=== PATIENT | female | born 1985 ===

== ENCOUNTER 2020-04-09 16:26 | Outpatient (REF) | payer MEDICAID, SELFPAY ==
--- NOTE | ~2020-04-09 | US_ITS ---
EXAMINATION: US SOFT TISSUE OF THE NECK CLINICAL INFORMATION: Nonpulsatile soft, mobile mass base of neck. COMPARISON: None TECHNIQUE: Linear transducer little-scale and color Doppler examination of the right base of neck. FINDINGS: In the area of the lump where the patient complains, there is a soft tissue heterogenous left thyroid nodule in the lower pole with increased vascularity. It moves with swallowing and causes pain during swallowing. It measures 2.2 x 1.7 x 1.9 cm. US/US soft tiss head and/or neck IMPRESSION: Heterogeneous vascular lower pole thyroid nodule. It moves with swallowing and causes pain.
== END 2020-04-09 16:27 | disposition home or self-care (01) ==
LOC: HO.US 16:26
PROVIDERS: Visit Provider Family Medicine
DX: R22.1 Localized swelling, mass and lump, neck (principal)
CPT/HCPCS: 76536

== ENCOUNTER → 2020-04-11 13:03 | Outpatient (BNVA) | payer MEDICAID, SELFPAY | PROVIDERS: PCP Family Medicine; Visit Provider Internal Medicine | DX: E04.2 Nontoxic multinodular goiter (principal) | CPT/HCPCS: 99202 ==

== ENCOUNTER 2020-05-14 11:28 | Outpatient (REF) | payer MEDICAID, SELFPAY ==
--- NOTE | ~2020-05-14 | US_ITS ---
EXAMINATION: PELVIC ULTRASOUND CLINICAL INFORMATION: Abnormal vaginal bleeding COMPARISON: None TECHNIQUE: Transabdominal and transvaginal pelvic ultrasound was performed. Transvaginal exam was performed for better visualization of the uterus and ovaries. FINDINGS: The uterus is anteverted and measures 8.5 x 6 x 6 cm in dimension. No focal uterine lesion is seen. Endometrial thickness is normal. There is a small amount of fluid seen in the endometrial canal. Anterior single thickness endometrium measures 4 mm and posterior single thickness endometrium measures 4 mm, double thickness endometrium measures 8 mm. The posterior wall of the endometrium appears slightly echogenic. This appears avascular and is of uncertain clinical significance. The cervix is normal appearing. The ovaries are normal-appearing. The right ovary measures 4 x 2.4 x 3 cm in the left ovary measures 3 x 2 x 2.7 cm. There is no fluid in the pelvis. US/US pelvic complete IMPRESSION: Normal thickness endometrium. There is a small amount of fluid in the endometrial canal. The posterior wall of the endometrium appears slightly echogenic compared to the anterior wall of uncertain clinical significance. Normal-appearing ovaries.
--- NOTE | ~2020-05-14 | US_ITS ---
EXAMINATION: PELVIC ULTRASOUND CLINICAL INFORMATION: Abnormal vaginal bleeding COMPARISON: None TECHNIQUE: Transabdominal and transvaginal pelvic ultrasound was performed. Transvaginal exam was performed for better visualization of the uterus and ovaries. FINDINGS: The uterus is anteverted and measures 8.5 x 6 x 6 cm in dimension. No focal uterine lesion is seen. Endometrial thickness is normal. There is a small amount of fluid seen in the endometrial canal. Anterior single thickness endometrium measures 4 mm and posterior single thickness endometrium measures 4 mm, double thickness endometrium measures 8 mm. The posterior wall of the endometrium appears slightly echogenic. This appears avascular and is of uncertain clinical significance. The cervix is normal appearing. The ovaries are normal-appearing. The right ovary measures 4 x 2.4 x 3 cm in the left ovary measures 3 x 2 x 2.7 cm. There is no fluid in the pelvis. US/US transvaginal IMPRESSION: Normal thickness endometrium. There is a small amount of fluid in the endometrial canal. The posterior wall of the endometrium appears slightly echogenic compared to the anterior wall of uncertain clinical significance. Normal-appearing ovaries.
== END 2020-05-14 11:29 | disposition home or self-care (01) ==
LOC: HO.US 11:28
PROVIDERS: Visit Provider Advanced Practice Midwife
DX: N93.9 Abnormal uterine and vaginal bleeding, unspecified (principal)
CPT/HCPCS: 76830; 76856

== ENCOUNTER 2020-05-16 10:03 | Outpatient (REF) | payer MEDICAID, SELFPAY ==
--- NOTE | 2020-05-16 10:34 | P.BOP_ITS ---
Brief Operative Note Date of Service: 05/16/20 Surgeon: Tayler Davis, DO This is doctor Tayler Davis. This is an ultrasound-guided fine-needle aspiration report. Date of Examination: 05/16/2020 Indication: Multinodular Thyroid Porcedure: Procedure was explained to the patient. Alternatives, the risk and benefits were discussed. Written consent was obtained. A time-out was also obtained. After sterile preparation, fine-needle aspiration of a left mid pole 2.2 cm thyroid nodule was performed using direct ultrasound guidance to confirm accurate needle placement. Five aspirations were made using 27 gauge needles. Samples were submitted for cytology. 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 The patient tolerated the procedure well. Aftercare instructions were provided. Impression: Uncomplicated fine needle aspiration biopsy of a left mid pole 2.2 cm thyroid nodule under ultrasound guidance. Estimated blood loss (mL): 0
[2020-05-16] MEDS: Lidocaine HCl 1 % MPF 5 ML VIAL SUBCUT (11:58)
== END 2020-05-16 10:04 | disposition home or self-care (01) ==
LOC: HO.US 10:03
PROVIDERS: Visit Provider Internal Medicine
DX: E04.2 Nontoxic multinodular goiter (principal)
CPT/HCPCS: 10005; 88172; 88173; 88177

== ENCOUNTER → 2020-05-31 08:57 | Outpatient (BNVA) | payer MEDICAID, SELFPAY | PROVIDERS: PCP Family Medicine; Visit Provider Internal Medicine ==

== ENCOUNTER 2020-06-12 10:33 | Outpatient (REF) | payer MEDICAID, SELFPAY ==
[2020-06-12 12:48] LABS: MANUAL DIFF FLAG NO
[2020-06-12 12:53] LABS: Basophils Percent Auto 0.9 % (0-2); Eosinophils Absolute Auto 0.1 X10*3/uL (0.0-0.4); Hematocrit 36.2 % (37-47); Hemoglobin 12.1 g/dl (12.0-16.0); Imm Gran Abs Auto 0.01 X10*3/uL (0.00-0.03); Imm Gran Pct Auto 0.2 % (0.0-0.4); Lymphocytes Absolute Auto 1.3 X10*3/uL (1.2-4.9); Lymphocytes Percent Auto 29.6 % (20-40); Mean Corpuscular HGB Conc 33.4 g/dl (31.0-35.0); Mean Corpuscular Volume 92.8 fL (80-98); Mean Platelet Volume 12.4 fL (9.4-12.3); Monocytes Absolute Auto 0.3 X10*3/uL (0.1-1.2); Monocytes Percent Auto 7.1 % (2-11); Neutrophils Absolute Auto 2.7 X10*3/uL (2.0-8.3); Neutrophils Percent Auto 60.2 % (45-73); Platelet Count 167 X10*3/uL (160-400); Red Cell Distribution Width 12.1 % (11.0-16.0); White Blood Count 4.5 X10*3/uL (4.8-10.8)
[2020-06-13 09:58] LABS: BV Int Neg Control Negative (Negative); BV Int Pos Control Positive (Positive)
[2020-06-13 10:41] LABS: CT PCR NOT DETECTED (Not Detect.); NG PCR NOT DETECTED (Not Detect.)
[2020-06-14 20:52] LABS: HPV mRNA E6/E7 rflx Not Detected (Not Detected)
== END 2020-06-12 10:34 | disposition home or self-care (01) ==
LOC: HO.LAB 10:33
PROVIDERS: PCP Family Medicine; Visit Provider Obstetrics & Gynecology
DX: Z12.4 Encounter for screening for malignant neoplasm of cervix (principal); Z11.51 Encounter for screening for human papillomavirus (HPV); Z11.3 Encounter for screening for infections with a predominantly sexual mode of transmission; N93.9 Abnormal uterine and vaginal bleeding, unspecified
CPT/HCPCS: 36415; 85025; 87480; 87491; 87510; 87591; 87624; 87660; 88142; 99202

== ENCOUNTER → 2020-07-03 11:55 | Outpatient (BNVA) | payer MEDICAID, SELFPAY | PROVIDERS: PCP Family Medicine; Visit Provider Obstetrics & Gynecology ==

== ENCOUNTER → 2020-08-06 10:18 | Outpatient (BNVA) | payer MEDICAID, SELFPAY | PROVIDERS: PCP Family Medicine; Visit Provider Obstetrics & Gynecology ==

== ENCOUNTER 2020-09-27 12:50 | Outpatient (REF) | payer MEDICAID, SELFPAY ==
--- NOTE | ~2020-09-27 | XR_ITS ---
EXAMINATION: XR KNEE, LEFT CLINICAL INFORMATION: Pain in left knee COMPARISON: None TECHNIQUE: Four views of the left knee. FINDINGS: Bones and soft tissues are normal. No fracture or joint effusion. Alignment is anatomic. Joint spaces are well maintained. No abnormal soft tissue calcification. XR/XR knee LT 4V IMPRESSION: Normal left knee.
== END 2020-09-27 12:51 | disposition home or self-care (01) ==
LOC: HO.XRAY 12:50
PROVIDERS: PCP Family Medicine; Referring Provider Family Medicine; Visit Provider Internal Medicine
DX: M25.562 Pain in left knee (principal)
CPT/HCPCS: 73564

== ENCOUNTER 2021-01-10 10:56 | Outpatient (REF) | payer MEDICAID, SELFPAY ==
[2021-01-11 01:19] LABS: CT PCR NOT DETECTED (Not Detect.); NG PCR NOT DETECTED (Not Detect.)
[2021-01-11 12:03] LABS: BV Int Neg Control Negative (Negative); BV Int Pos Control Positive (Positive)
== END 2021-01-10 10:57 | disposition home or self-care (01) ==
LOC: HO.LAB 10:56
PROVIDERS: PCP Family Medicine; Visit Provider Advanced Practice Midwife
DX: Z01.419 Encounter for gynecological examination (general) (routine) without abnormal findings (principal); N93.8 Other specified abnormal uterine and vaginal bleeding; Z20.2 Contact with and (suspected) exposure to infections with a predominantly sexual mode of transmission
CPT/HCPCS: 87480; 87491; 87510; 87591; 87660; 99212

== ENCOUNTER 2021-06-18 09:32 | Outpatient (REF) | payer MEDICAID, SELFPAY ==
--- NOTE | ~2021-06-18 | US_ITS ---
EXAMINATION: US THYROID CLINICAL INFORMATION: Nontoxic multinodular goiter. COMPARISON: Ultrasound soft tissue neck 04/09/2020 and images from thyroid fine-needle aspiration April 2020. TECHNIQUE: Linear transducer little-scale and color Doppler examination with attention to the region of the thyroid. FINDINGS: SIZE: Measurements of the thyroid lobes and nodules are given in sagittal, anteroposterior and transverse dimensions respectively. Right Thyroid Lobe: 5.6 x 1.6 x 1.6 cm, volume 8.1 mL. Parenchyma: The gland echotexture is homogeneous. Thyroid vascularity is normal. Left Thyroid Lobe: 5.3 x 2.0 x 1.4 cm, volume 9.2 mL. Parenchyma: The gland echotexture is homogeneous. Thyroid vascularity is normal. Isthmus: 0.6 cm in maximum AP dimension. Estimated total number of nodules greater than or equal to 1 cm: 2. Insurance Follow Up Representative nodules are described as follows: 1. Location: Right mid. Size: 1.4 x 0.9 x 1.0 cm, volume 0.5 mL. Previously: 1.1 x 0.6 x 1.2 cm, volume 0.4 mL. Nodule characteristics: Composition: Solid/almost completely solid (2). Echogenicity: Hyperechoic (1). Shape: Not taller than wide (0). Margins: Ill-defined (0). Echogenic Foci: Punctate echogenic foci (3). ACR TI-RADS total points: 6 ACR TI-RADS category: 4 Significant change in size (>/= 20% in 2 dimensions and minimal increase of 2 mm or 50% or greater increase in volume): Change in features: Change in ACR TI-RADS risk category: 2. Location: Right isthmus. Size: 0.9 x 0.5 x 0.9 cm, volume 0.2 mL. Previously: Not documented on the prior study. Nodule characteristics: Composition: Solid (2). Echogenicity: Hyperechoic (1). Shape: Not taller than wide (0). Margins: Ill-defined (0). Echogenic Foci: None (0). ACR TI-RADS total points: 3 ACR TI-RADS category: 3 3. Location: Left inferior. Size: 2.5 x 1.7 x 1.9 cm, volume 4.3 mL. Previously: 2.2 x 1.9 x 1.7 cm, volume 3.7 mL. Nodule characteristics: Composition: Solid/almost completely solid (2). Echogenicity: Hyperechoic (1). Shape: Not taller than wide (0). Margins: Smooth (0). Echogenic Foci: None (0). ACR TI-RADS total points: 3 ACR TI-RADS category: 3 Significant change in size (>/= 20% in 2 dimensions and minimal increase of 2 mm or 50% or greater increase in volume): Change in features: Change in ACR TI-RADS risk category: NODES: No lymphadenopathy is seen in the tissue surrounding the thyroid gland. US/US thyroid IMPRESSION: Newly appreciated right isthmus nodule. Slight interval increase in size in the right mid and left inferior thyroid nodules. According to TI RADS criteria, followup ultrasound in 1, 2, 3 and 5 years recommended. ACR TI-RADS RECOMMENDATION REFERENCE: Ultrasound-guided fine-needle aspiration, followup ultrasound, no further follow up. * TR1 (0 point) and TR 2 (2 points): No FNA or follow up * TR3 (3 points): FNA if more than or equal to 2.5 cm in maximum dimension, followup ultrasound in 1, 3 and 5 years if 1.5 to 2.4 cm in maximum dimension. * TR4 (4-6 points): FNA if more than or equal to 1.5 cm in maximum dimension, followup ultrasound in 1, 2, 3 and 5 years if 1 to 1.4 cm in maximum dimension. * TR5 (more than or equal to 7 points): FNA if more than or equal to 1 cm in maximum dimension, followup ultrasound every year for 5 years if 0.5 to 0.9 cm in maximum dimension. * TR3, TR4 or TR5 nodules that are below the size threshold for follow up receive no follow up.
== END 2021-06-18 09:33 | disposition home or self-care (01) ==
LOC: HO.US 09:32
PROVIDERS: Visit Provider Internal Medicine
DX: E04.2 Nontoxic multinodular goiter (principal)
CPT/HCPCS: 76536

== ENCOUNTER 2021-07-09 13:37 | Outpatient (REF) | payer MEDICAID, SELFPAY ==
[2021-07-09 14:49] LABS: Free T4 (Free Thyroxine) 0.95 ng/dL (0.71-1.85); Thyroid Stimulating Hormone 0.69 uIU/mL (0.32-4.0)
== END 2021-07-09 13:38 | disposition home or self-care (01) ==
LOC: HO.LAB 13:37
PROVIDERS: PCP Family Medicine; Visit Provider Internal Medicine
DX: E04.2 Nontoxic multinodular goiter (principal)
CPT/HCPCS: 36415; 84439; 84443

== ENCOUNTER → 2021-07-10 10:24 | Outpatient (BNVA) | payer MEDICAID, SELFPAY | PROVIDERS: PCP Internal Medicine; Visit Provider Internal Medicine | DX: Z13.89 Encounter for screening for other disorder (principal) ==

== ENCOUNTER 2021-10-06 14:24 | Outpatient (REF) | payer MEDICAID, SELFPAY ==
[2021-10-07 04:28] LABS: CT PCR NOT DETECTED (Not Detect.); NG PCR NOT DETECTED (Not Detect.)
[2021-10-07 09:05] LABS: BV Int Neg Control Negative (Negative); BV Int Pos Control Positive (Positive)
== END 2021-10-06 14:25 | disposition home or self-care (01) ==
LOC: HO.LAB 14:24
PROVIDERS: PCP Family Medicine; Visit Provider Advanced Practice Midwife
DX: Z32.02 Encounter for pregnancy test, result negative (principal); N93.8 Other specified abnormal uterine and vaginal bleeding
CPT/HCPCS: 58100; 81025; 87480; 87491; 87510; 87591; 87660; 88305; 99212

== ENCOUNTER 2022-02-03 13:45 | Emergency (ER) | payer MEDICAID, SELFPAY | END 2022-02-03 15:52 | disposition left against medical advice (07) | PROVIDERS: Emergency Provider Emergency Medicine; PCP Family Medicine | DX: G43.909 Migraine, unspecified, not intractable, without status migrainosus (principal) ==

== ENCOUNTER 2022-04-29 09:13 | Emergency (ER) | payer MEDICAID, SELFPAY ==
--- NOTE | ~2022-04-29 | CT_ITS ---
EXAMINATION: CT ABDOMEN AND PELVIS WITHOUT CONTRAST CLINICAL INFORMATION: Flank pain COMPARISON: None TECHNIQUE: Multidetector volumetric imaging was performed from the superior aspect of the liver through the pubic symphysis. Sagittal and coronal reformatted images were obtained on the technologist's workstation. This CT examination was performed using dose optimization techniques as appropriate, variously including the following: *Automated exposure control *Adjustment of mA and/or kV according to patient size (this includes techniques or standardized protocols for targeted exams where dose is matched to indication/reason for exam; i.e. extremities or head) *Use of iterative reconstruction technique DLP: 450 mGy-cm FINDINGS: LUNG BASES: The visualized lung bases are unremarkable. LIVER, GALLBLADDER, AND BILIARY TREE: The liver is normal in size, shape, and attenuation. No focal hepatic lesion or biliary ductal dilatation is identified. Patient is status post cholecystectomy. PANCREAS: Unremarkable. SPLEEN: Unremarkable. ADRENAL GLANDS: Unremarkable. KIDNEYS AND URETERS: The kidneys are normal in size, shape, and attenuation. No hydronephrosis, hydroureter, or calculi seen. No perinephric stranding. BLADDER: Mildly distended and grossly unremarkable. GASTROINTESTINAL TRACT: No evidence of bowel obstruction or significant wall thickening. The appendix is unremarkable. No free air is seen. ABDOMINAL WALL: No significant hernia is appreciated. LYMPH NODES: Normal. VASCULAR: Unremarkable. PELVIC VISCERA: Unremarkable. Small volume of pelvic free fluid. OSSEOUS STRUCTURES: Unremarkable. CT/CT abdomen pelvis wo IV con IMPRESSION: Small volume of nonspecific pelvic free fluid, which may be physiologic. No hydronephrosis or obstructing calculus identified.
[2022-04-29 09:40] VITALS: BP 118/73; PULSE 74; RESP 16; TEMP 36.3; O2SAT 100; BMI 31.5
[2022-04-29 10:11] LABS: MANUAL DIFF FLAG NO
[2022-04-29 10:13] LABS: Basophils Percent Auto 0.8 % (0-2); Eosinophils Absolute Auto 0.1 X10*3/uL (0.0-0.4); Eosinophils Percent Auto 1.2 % (0-4); Hematocrit 38.1 % (37.0-47.0); Hemoglobin 12.5 g/dl (12.0-16.0); Imm Gran Abs Auto 0.01 X10*3/uL (0.00-0.03); Imm Gran Pct Auto 0.2 % (0.0-0.4); Lymphocytes Absolute Auto 1.6 X10*3/uL (1.2-4.9); Lymphocytes Percent Auto 31.5 % (20-40); Mean Corpuscular HGB Conc 32.8 g/dl (31.0-35.0); Mean Corpuscular Hemoglobin 29.6 pg (27.0-33.0); Mean Corpuscular Volume 90.3 fL (80.0-98.0); Mean Platelet Volume 11.7 fL (9.4-12.3); Monocytes Absolute Auto 0.4 X10*3/uL (0.1-1.2); Monocytes Percent Auto 6.9 % (2-11); Neutrophils Absolute Auto 3.1 x10*3/uL (2.0-8.3); Neutrophils Percent Auto 59.4 % (45-73); Platelet Count 181 X10*3/uL (160-400); Red Blood Count 4.22 X10*6/uL (4.20-5.50); Red Cell Distribution Width 12.7 % (11.0-16.0); White Blood Count 5.2 X10*3/uL (4.8-10.8)
[2022-04-29 10:31] LABS: Anion Gap 11 (12-20); Blood Urea Nitrogen 8 mg/dL (9-16); Carbon Dioxide 24 mmol/L (22-29); Chloride 109 mmol/L (96-108); Creatinine Clr Calc Pharmacy 107.6; Estimated Glomerular Filt Rate > 60; Glucose Random 84 mg/dL (60-115); Potassium 4.7 mmol/L (3.3-5.1); Sodium 139 mmol/L (135-145)
[2022-04-29 14:00] VITALS: BP 118/76; PULSE 77; RESP 16; TEMP 36.7; O2SAT 99
[2022-04-29 20:54] VITALS: BP 121/73; PULSE 76; RESP 17; TEMP 37; O2SAT 96
[2022-04-29 21:05] LABS: Appearance Urine Cloudy; Color Urine Yellow; Glucose Urine UA Negative (Negative); Leukocyte Esterase Urine Negative (Negative); Nitrite Urine Negative (Negative); PH 6.5 (5.0-9.0); Urine Blood Negative (Negative); Urine Ketones Negative (Negative); Urine Protein Negative (Neg-Trace)
--- NOTE | 2022-04-29 21:14 | ED_ITS ---
HPI - General Adult General Chief complaint: General Medical Stated complaint: R flank pain Time Seen by Provider: 04/29/22 21:14 Source: patient Mode of arrival: ambulatory Limitations: no limitations History of Present Illness HPI narrative: 37-year-old female presents with 2 days of back and right flank pain. She was evaluated at an urgent care clinic yesterday, and was called by the MD for abnormal values. She reports that she was told to present to the emergency department for evaluation because of her abnormal blood work. She continues with pain that has been unrelieved with [id number] medications. Onset (ago): day(s) (2) Location: back and right ( Flank) Radiation: back Severity: moderate Severity scale (1-10): 7 Quality: aching Pain Consistency: constant Relieving factors: none Exacerbating factors: movement Associated symptoms: denies other symptoms Related Data Home Medications Medication Instructions Recorded Confirmed ibuprofen 400 mg tablet 400 mg PO Q8H PRN Pain 04/11/20 10/21/21 topiramate 25 mg tablet 25 mg PO DAILY 10/06/21 10/21/21 Previous Rx's Medication Instructions Recorded metronidazole 500 mg tablet 500 mg PO BID 7 days #14 tabs 01/13/21 fluconazole 150 mg tablet 150 mg PO Q3D 2 doses #2 tabs 10/14/21 metronidazole 500 mg tablet 500 mg PO BID 7 days #14 tabs 10/16/21 Allergies Allergy/AdvReac Type Severity Reaction Status Date / Time grape [GRAPE] Allergy Severe ITCHY, Verified 04/29/22 09:40 RASH, SWELLING cat dander [CAT] Allergy Unknown WAS TOLD Verified 04/29/22 09:40 BY HER DOCTOR SHE IS ALLERGIC TO CATS. dog dander [DOG] Allergy Unknown DOCTOR Verified 04/29/22 09:40 TOLD PT SHE HAS ALLERGY TO DOGS Review of Systems Review of Systems: Constitutional: No Fever, No Chills Respiratory: No Cough, No Dyspnea Gastrointestinal: No Nausea, No Vomiting, No Diarrhea, positive right flank abdominal Pain Genitourinary: No Dysuria, No Hematuria Musculoskeletal: positive back pain, No Myalgias, No Joint Swelling Skin: No Skin lacerations, No rash Neuro: No Weakness, No Dizziness, No Headache Yes all other systems are reviewed and are negative PMFSH Past Medical History Attestation statement: The following information was validated with the patient. Source: old records reviewed Medical History Multinodular thyroid Seizure disorder Surgical History History of bilateral tubal ligation Hx of section Hx of cholecystectomy Family History Family History Mother Unknown family medical history Father Hypertension Heart disease Maternal Grandmother Colon cancer Social History Social History Alcohol intake: current Patient Tobacco Use Status: Never used Tobacco Advance Directives: No Advance Directives Information Provided: No Physical Exam ED Vital Signs: Vital Signs - 24 hr 04/29/22 09:40 04/29/22 14:00 04/29/22 20:54 Temperature 97.4 F 98.1 F 98.6 F Pulse Rate 74 77 76 Respiratory Rate 16 16 17 Blood Pressure 118/73 118/76 121/73 Pulse Oximetry 100 99 96 Oxygen Delivery Method Room Air Room Air Room Air 04/29/22 22:46 Temperature 97.3 F Pulse Rate 71 Respiratory Rate 18 Blood Pressure 122/73 Pulse Oximetry 96 Oxygen Delivery Method BMI result Body Mass Index 31.5 Appearance: Alert. Oriented X3. moderate distress. Eyes: Pupils equal, round and reactive to light. Neck: Normal inspection. Neck supple. CVS: Normal heart rate and rhythm. Pulses normal. Respiratory: No respiratory distress. Breath sounds normal. Abdomen: Soft and right lower quadrant and right upper quadrant tenderness. right CVA tenderness. Skin: Skin warm and dry. Normal skin color. Extremities: No lower extremity edema. Gait Balanced and coordinated. Neuro: No motor deficit. No sensory deficit. Cranial nerves 2-12 intact. Course Course Course Narrative: 37-year-old female presents for 2 days of right flank and back pain. Was evaluated at an urgent care clinic 2 days ago and was called today to present to an emergency department for evaluation for abnormal lab values. Patient continues with the pain, states that it has not been alleviated with [id number] medications. Patient looks tired, and uncomfortable, is afebrile at this time. Physical exam indicates right CVA tenderness, right upper and right lower quadrant abdominal pain to minimal palpation. No rebound or rigidity. labs within normal limits. Considering patient's abnormal physical presentation I feel that CT scan is necessary to rule out acute abdomen, kidney stones, cholecystitis. Will give medications for pain, give a L of fluid. Urinalysis is negative. CT scan is pending. 23:30 CT scan still pending. Patient states that Toradol is effective. 00:16 CT scan negative for acute findings requiring emergent intervention. I did discuss lab values as well as negative CT scan results in detail with this patient. Patient feels comfortable with discharge home. Patient verbalized understanding of and agrees to plan of care. Verbalized understanding of signs symptoms indicating need for emergent intervention. Medications Administered Discontinued Medications Generic Name Dose Route Start Last Admin Trade Name Freq PRN Reason Stop Dose Admin Sodium Chloride 1,000 mls @ 999 mls/hr 04/29/22 21:30 04/29/22 21:55 Ns IVCONT 04/29/22 22:30 999 mls/hr .Q1H1M IKER Administration Ketorolac Tromethamine 30 mg 04/29/22 21:17 04/29/22 21:55 Ketorolac Tromethamine 30 Mg/Ml Vial IVPUSH 04/29/22 21:18 30 mg ONCE ONE Administration Ondansetron HCl 4 mg 04/29/22 21:17 04/29/22 21:55 Ondansetron Hcl 4 Mg/2 Ml Vial IVPUSH 04/29/22 21:18 4 mg ONCE ONE Administration Medical Decision Making Differential Diagnosis Differential Diagnoses: The differential diagnosis associated with the presentation includes nephrolithiasis, hydronephrosis, pyelo , appendicitis Admission/Observation Consideration of admission/observation: Escalation of care including admission/observation considered if patient's CT scan is acute, will consider admission Lab Data MDM Lab Attestation statement: I reviewed the patient's lab results. 04/29/22 10:03 04/29/22 10:03 Labs: Lab Results 04/29/22 04/29/22 04/29/22 Range/Units 10:03 10:03 20:56 WBC 5.2 (4.8-10.8) X10*3/uL RBC 4.22 (4.20-5.50) X10*6/uL Hgb 12.5 (12.0-16.0) g/dl Hct 38.1 (37.0-47.0) % MCV 90.3 (80.0-98.0) fL MCH 29.6 (27.0-33.0) pg MCHC 32.8 (31.0-35.0) g/dl RDW 12.7 (11.0-16.0) % Plt Count 181 (160-400) X10*3/uL MPV 11.7 (9.4-12.3) fL Immature Gran % (Auto) 0.2 (0.0-0.4) % Neut % (Auto) 59.4 (45-73) % Lymph % (Auto) 31.5 (20-40) % [place] % (Auto) 6.9 (2-11) % Eos % (Auto) 1.2 (0-4) % Baso % (Auto) 0.8 (0-2) % Lymph # (Auto) 1.6 (1.2-4.9) X10*3/uL [place] # (Auto) 0.4 (0.1-1.2) X10*3/uL Eos # (Auto) 0.1 (0.0-0.4) X10*3/uL Baso # (Auto) 0.0 (0.0-0.2) X10*3/uL Abs Immat Gran (auto) 0.01 (0.00-0.03) X10*3/uL Absolute Neuts (auto) 3.1 (2.0-8.3) x10*3/uL Absolute Nucleated RBC 0.000 (0.0-0.012) X10*3/uL Nucleated RBC % (auto) 0.0 (0.0-0.2) /100WBC Sodium 139 (135-145) mmol/L Potassium 4.7 (3.3-5.1) mmol/L Chloride 109 H (96-108) mmol/L Carbon Dioxide 24 (22-29) mmol/L Anion Gap 11 L (12-20) BUN 8 L (9-16) mg/dL Creatinine 0.72 (0.5-1.4) mg/dL Estim Creat Clear Calc 107.6 Estimated GFR > 60 Random Glucose 84 (60-115) mg/dL Calcium 9.0 (8.4-10.2) mg/dL Urine Color Yellow Urine Appearance Cloudy Urine pH 6.5 (5.0-9.0) Ur Specific [place] 1.020 (1.005-1.025) Urine Protein Negative (Neg-Trace) mg/dL Urine Glucose (UA) Negative (Negative) mg/dL Urine Ketones Negative (Negative) mg/dL Urine Blood Negative (Negative) Urine Nitrite Negative (Negative) Ur Leukocyte Esterase Negative (Negative) Independent Interpretation I performed an independent interpretation of an: CT Scan Radiology Impression Discussion of test interpretation with radiology: I have reviewed the radiologist's reading. Radiologist Impression: FINDINGS: LUNG BASES: The visualized lung bases are unremarkable.? LIVER, GALLBLADDER, AND BILIARY TREE: The liver is normal in size, shape, and attenuation. No focal hepatic lesion or biliary ductal dilatation is identified. Patient is status post cholecystectomy. PANCREAS: Unremarkable.? SPLEEN: Unremarkable.? ADRENAL GLANDS: Unremarkable.? KIDNEYS AND URETERS: The kidneys are normal in size, shape, and attenuation. No hydronephrosis, hydroureter, or calculi seen. No perinephric stranding. BLADDER: Mildly distended and grossly unremarkable. GASTROINTESTINAL TRACT: No evidence of bowel obstruction or significant wall thickening. The appendix is unremarkable. No free air is seen. ABDOMINAL WALL: No significant hernia is appreciated. LYMPH NODES: Normal. VASCULAR: Unremarkable. PELVIC VISCERA: Unremarkable. Small volume of pelvic free fluid. OSSEOUS STRUCTURES: Unremarkable.? CT/CT abdomen pelvis wo IV con IMPRESSION: Small volume of nonspecific pelvic free fluid, which may be physiologic. No hydronephrosis or obstructing calculus identified. ? External Record Review External record reviewed: Outpatient record and Prior outpatient labs Prescription Management I considered prescription management with: Pain Medication Discharge Plan Discharge Clinical Impression: Abdominal pain Patient Disposition: Home, Self-Care Instructions: Abdominal Pain (ED) Additional Instructions: you were evaluated for abdominal pain. CT scan of abdomen pelvis is negative for acute findings requiring emergent intervention. Your lab values were within normal limits. Alternate Tylenol 650 mg every 6 hours and Motrin 600 mg every 6 hours as needed for pain and fever management. Consider taking these medications 3 hours apart so you have pain and fever management every 3 hours. Write down what time you take these medications to prevent accidental overdose. Motrin is the same medication as Advil and ibuprofen. Tylenol is the same medication as acetaminophen. Thank you for choosing this emergency department for evaluation. Please follow-up with primary care physician as needed. Return to the emergency department for any new, concerning, or worsening symptoms. Prescriptions: No Action metronidazole 500 mg tablet 500 mg PO BID 7 Days Qty: 14 0RF metronidazole 500 mg tablet 500 mg PO BID 7 Days Qty: 14 0RF ibuprofen 400 mg tablet 400 mg PO Q8H PRN (Reason: Pain) topiramate 25 mg tablet 25 mg PO DAILY fluconazole 150 mg tablet 150 mg PO Q3D 0 Days Qty: 2 1RF Rx Instructions: may repeat second dose 72 hrs after first dose if symptoms persist
[2022-04-29] MEDS: Ketorolac Tromethamine 30 MG/ML VIAL IVPUSH (21:55)
[2022-04-29] MEDS: ondansetron HCL 4 MG/2 ML VIAL IVPUSH (21:55)
[2022-04-29] MEDS: 0.9 % Sodium Chloride 1,000 ML 999 ML IVCONT (21:55)
[2022-04-29 22:46] VITALS: BP 122/73; PULSE 71; RESP 18; TEMP 36.3; O2SAT 96
--- NOTE | 2022-04-29 23:42 | PC.NURSE ---
assumed care of pt no apparent distress a&o
--- NOTE | 2022-04-30 00:45 | PC.NURSE ---
discharge instructions given/explained, no apparent distress, ambulates safely/independently, IV cath tip intact upon removal
== END 2022-04-30 00:43 | disposition home or self-care (01) ==
PROVIDERS: Emergency Provider Emergency Medicine Emergency Medical Services; PCP Family Medicine
DX: R10.9 Unspecified abdominal pain (principal)
CPT/HCPCS: 36415; 74176; 80048; 81003; 85025; 96374; 96375; 99284; J1885; J2405

== ENCOUNTER 2022-05-06 14:02 | Outpatient (REF) | payer MEDICAID, SELFPAY ==
--- NOTE | ~2022-05-06 | US_ITS ---
EXAMINATION: US THYROID CLINICAL INFORMATION: Nontoxic multinodular goiter. COMPARISON: Ultrasound thyroid 06/18/2021. Ultrasound-guided thyroid biopsy 05/16/2020. TECHNIQUE: Linear transducer grayscale and color Doppler examination with attention to the region of the thyroid. FINDINGS: SIZE: Measurements of the thyroid lobes and nodules are given in sagittal, anteroposterior and transverse dimensions respectively. Right Thyroid Lobe: 5.4 x 1.4 x 1.4 cm, volume 5.5 mL. Previously 5.6 x 1.6 x 1.6 cm, volume 8.1 mL. Parenchyma: The gland echotexture is homogeneous. Thyroid vascularity is normal. Left Thyroid Lobe: 5.2 x 2.1 x 1.5 cm, volume 8.6 mL. Previously 5.3 x 2.0 x 1.4 cm, volume 9.2 mL. Parenchyma: The gland echotexture is homogeneous. Thyroid vascularity is normal. Isthmus: 0.6 cm in maximum AP dimension. Previously 0.6 cm. Estimated total number of nodules greater than or equal to 1 cm: 2. Psych Assistant nodules are described as follows: 1. Location: Right mid. Size: 1.3 x 0.6 x 1.2 cm, volume 0.5 mL. Previously: 1.4 x 0.7 x 1.0 cm, volume 0.5 mL. Nodule characteristics: Composition: Solid (2). Echogenicity: Hyperechoic (1). Shape: Not taller than wide (0). Margins: Ill-defined (0). Echogenic Foci: Punctate echogenic foci (3). ACR TI-RADS total points: 6 Previous: 6 ACR TI-RADS category: 4 Previous: 4 Significant change in size (>/= 20% in 2 dimensions and minimal increase of 2 mm or 50% or greater increase in volume): None Change in features: None Change in ACR TI-RADS risk category: No change 2. Location: Right isthmus. Size: 0.8 x 0.4 x 0.7 cm, volume 0.1 mL. Previously: 0.9 x 0.5 x 0.9 cm, volume 0.2 mL. Nodule characteristics: Composition: Solid (2). Echogenicity: Hyperechoic (1). Shape: Not taller than wide (0). Margins: Smooth (0). Echogenic Foci: None (0). ACR TI-RADS total points: 3 Previous: 3 ACR TI-RADS category: 3 Previous: 3 Significant change in size (>/= 20% in 2 dimensions and minimal increase of 2 mm or 50% or greater increase in volume): None Change in features: None Change in ACR TI-RADS risk category: None 3. Location: Left inferior. Size: 1.9 x 1.9 x 1.7 cm, volume 3.1 mL. Previously: 1.9 x 1.8 x 1.8 cm, volume 3.3 mL. Nodule characteristics: Composition: Solid/almost completely solid (2). Echogenicity: Hyperechoic (1). Shape: Taller than wide (3). Margins: Smooth (0). Echogenic Foci: None (0). ACR TI-RADS total points: 6 Previous: 3 ACR TI-RADS category: 4 Previous: 3 Significant change in size (>/= 20% in 2 dimensions and minimal increase of 2 mm or 50% or greater increase in volume): None Change in features: None Change in ACR TI-RADS risk category: Increased NODES: No lymphadenopathy is seen in the tissue surrounding the thyroid gland. US/US thyroid IMPRESSION: Bilateral thyroid nodules. The right and left thyroid nodules have a TI-RADS category of 4. Recommend follow up as per TI-RADS reference. ACR TI-RADS RECOMMENDATION REFERENCE: Ultrasound-guided fine-needle aspiration, followup ultrasound, no further follow up. * TR1 (0 point) and TR2 (2 points): No FNA or follow up. * TR3 (3 points): FNA if more than or equal to 2.5 cm in maximum dimension, followup ultrasound in 1, 3 and 5 years if 1.5 to 2.4 cm in maximum dimension. * TR4 (4-6 points): FNA if more than or equal to 1.5 cm in maximum dimension, followup ultrasound in 1, 2, 3 and 5 years if 1 to 1.4 cm in maximum dimension. * TR5 (more than or equal to 7 points): FNA if more than or equal to 1 cm in maximum dimension, followup ultrasound every year for 5 years if 0.5 to 0.9 cm in maximum dimension. * TR3, TR4 or TR5 nodules that are below the size threshold for followup receive no follow up.
== END 2022-05-06 14:03 | disposition home or self-care (01) ==
LOC: HO.US 14:02
PROVIDERS: PCP Family Medicine; Visit Provider Internal Medicine
DX: E04.2 Nontoxic multinodular goiter (principal)
CPT/HCPCS: 76536

== ENCOUNTER 2022-07-09 15:43 | Outpatient (REF) | payer MEDICAID, SELFPAY ==
[2022-07-09 17:16] LABS: Free T4 (Free Thyroxine) 0.87 ng/dL (0.71-1.85); Thyroid Stimulating Hormone 1.25 uIU/mL (0.32-4.0)
== END 2022-07-09 15:44 | disposition home or self-care (01) ==
LOC: HO.LAB 15:43
PROVIDERS: PCP Family Medicine; Visit Provider Internal Medicine
DX: E04.2 Nontoxic multinodular goiter (principal)
CPT/HCPCS: 36415; 84439; 84443

== ENCOUNTER → 2022-07-13 10:03 | Outpatient (BNVA) | payer MEDICAID, SELFPAY | PROVIDERS: PCP Family Medicine; Visit Provider Internal Medicine | DX: E04.2 Nontoxic multinodular goiter (principal) | CPT/HCPCS: 99212 ==

== ENCOUNTER 2022-10-20 15:38 | Emergency (ER) | payer MEDICAID, SELFPAY ==
--- NOTE | ~2022-10-20 | CT_ITS ---
EXAMINATION: CT HEAD WITHOUT CONTRAST CLINICAL INFORMATION: Seizures. COMPARISON: None available. TECHNIQUE: Contiguous axial imaging was performed from the skull base to vertex without intravenous administration of contrast. This CT examination was performed using dose optimization techniques as appropriate, variously including the following: *Automated exposure control *Adjustment of mA and/or kV according to patient size (this includes techniques or standardized protocols for targeted exams where dose is matched to indication/reason for exam; i.e. extremities or head) *Use of iterative reconstruction technique DLP: 638.28 mGy-cm FINDINGS: The lateral, third and fourth ventricles are normally outlined. The cortical sulci and basal cisterns are normally outlined as well. There is no acute territorial defect, hemorrhage or midline shift. The extra-axial spaces are unremarkable. Calvarium: Intact. Maxillofacial sinuses and mastoids: Clear as visualized. CT/CT head/brain wo IV con IMPRESSION: No acute intracranial abnormality.
[2022-10-20 15:47] VITALS: BP 112/64; BP 121/70; PULSE 80; PULSE 85; RESP 16; TEMP 36.6; O2SAT 97; O2SAT 99; BMI 31.7
--- NOTE | 2022-10-20 15:48 | ECG_ITS ---
Test Reason : seizure Blood Pressure : / mmHG Vent. Rate : 078 BPM Atrial Rate : 078 BPM P-R Int : 158 ms QRS Dur : 084 ms QT Int : 374 ms P-R-T Axes : 048 022 027 degrees QTc Int : 426 ms Normal sinus rhythm with sinus arrhythmia Normal ECG No previous ECGs available Referred By: Ludy Harrison Electronically Signed By:SAQIB GOYAL
--- NOTE | 2022-10-20 15:49 | ED_ITS ---
HPI - Seizure General Chief Complaint: Seizure Stated Complaint: SEIZURE AT WORK CAOX4 Time Seen by Provider: 10/20/22 15:42 Source: patient and EMS Mode of arrival: EMS Limitations: no limitations History of Present Illness HPI Narrative: Patient comes emergency room complaining of a seizure at work. Patient states that she was in her car at work, talking to her . When she was on the phone, patient had a seizure. Patient's called the patient's workplace and also 911. Coworkers found the patient in her car with tonic clonic like movements. Patient states that she does not remember anything. Patient states that she has history of seizures. Patient has not had a seizure in 10+ years, she used to take Dilantin which she has not taken for all those years. Patient states that she has not had any URI or UTI symptoms, no fever chills. Related Data Home Medications Medication Instructions Recorded Confirmed ibuprofen 400 mg tablet 400 mg PO Q8H PRN Pain 04/11/20 07/13/22 topiramate 25 mg tablet 25 mg PO DAILY 10/06/21 07/13/22 amitriptyline 100 mg tablet 100 mg PO BEDTIME 07/13/22 07/13/22 Previous Rx's Medication Instructions Recorded metronidazole 500 mg tablet 500 mg PO BID 7 days #14 tabs 01/13/21 fluconazole 150 mg tablet 150 mg PO Q3D 2 doses #2 tabs 10/14/21 metronidazole 500 mg tablet 500 mg PO BID 7 days #14 tabs 10/16/21 levetiracetam 500 mg tablet 500 mg PO BID #60 tabs 10/20/22 (Keppra) Allergies Allergy/AdvReac Type Severity Reaction Status Date / Time grape [GRAPE] Allergy Severe ITCHY, Verified 10/20/22 15:47 RASH, SWELLING cat dander [CAT] Allergy Unknown WAS TOLD Verified 10/20/22 15:47 BY HER DOCTOR SHE IS ALLERGIC TO CATS. dog dander [DOG] Allergy Unknown DOCTOR Verified 10/20/22 15:47 TOLD PT SHE HAS ALLERGY TO DOGS Review of Systems Review of Systems: Constitutional : No Weight loss, No Fever, No Chills, No Night Sweats, No Fatigue, No Malaise ENT/Mouth : No Hearing loss, No Ear Pain, No Nasal Congestion, No Sinus Pain, No Hoarseness, No sore throat, No Rhinorrhea, No Swallowing Difficulty Eyes: No Eye Pain, No Swelling, No Redness, No Foreign Body, No Discharge, No Vision Changes Cardiovascular : No Chest Pain, No SOB, No Dyspnea on Exertion, No Orthopnea, No Edema, No Palpitations Respiratory : No Cough, No Sputum, No Wheezing, No Smoke Exposure, No Dyspnea Gastrointestinal : No Nausea, No Vomiting, No Diarrhea, No Constipation, No abdominal Pain, No Hematochezia, No Melena Genitourinary : no irregular bleeding, No Dysuria, No Urinary Frequency, No Hematuria, No Urinary Incontinence, No Urgency, No Flank Pain, No Urinary Flow Changes, No Hesitancy Musculoskeletal : No joint pain, No Myalgias, No Joint Swelling Skin : No Skin Lesions, No rash Neuro : No Weakness, No Numbness, No Paresthesias, complaining of mild headache, no dizziness, complaining of 1 tonic-clonic seizure Psych : No Anxiety/Panic, No Depression, No SI/HI/AH/VH, No Social Issues, Heme/Lymph: No Bruising, No Bleeding,No Lymphadenopathy Endocrine : No Polyuria, No Polydipsia, No Temperature Intolerance PMFSH Past Medical History Medical History Multinodular thyroid Seizure disorder Surgical History History of bilateral tubal ligation Hx of section Hx of cholecystectomy Family History Family History Mother Unknown family medical history Father Hypertension Heart disease Maternal Grandmother Colon cancer Social History Social History Alcohol intake: never Patient Tobacco Use Status: Never used Tobacco Smoked in Last 30 Days: No Use of substances other than those prescribed or required for medical reasons: No Advance Directives: No Advance Directives Information Provided: No Patient : No Physical Exam Vital Signs: Vital Signs: Last Vital Signs Temp 97.9 F 10/20/22 15:47 Pulse 78 10/20/22 18:09 Resp 16 10/20/22 18:09 BP 111/65 10/20/22 18:09 Pulse Ox 99 10/20/22 18:09 O2 Del Method Room Air 10/20/22 18:09 BMI result Body Mass Index 31.7 Const: Other: Appearance: Alert. Oriented X3. No acute distress. Eyes: Pupils equal, round and reactive to light. ENT: Pharynx normal. Neck: Normal inspection. Neck supple. No lymph nodes noted. No crepitus CVS: Normal heart rate and rhythm. Pulses normal. Normal S1 and S2 Respiratory: No respiratory distress. Breath sounds normal. No Wheezing. No rales Abdomen: Soft and nontender. No rigidity. No distention. Skin: Skin warm and dry. Normal skin color. Normal skin turgor. Extremities: No lower extremity edema. No Lacerations. No Rash Neuro: Oriented X 3. No motor deficit. No sensory deficit. Moving all extremities. No slurred speech. CN 2 through 12 grossly intact Psych: calm, cooperative, normal affect Course Course Course Narrative: -all of patient's labs and imaging pending Medications Administered Discontinued Medications Generic Name Dose Route Start Last Admin Trade Name Freq PRN Reason Stop Dose Admin Acetaminophen 975 mg 10/20/22 16:04 10/20/22 16:25 Acetaminophen 325 Mg Tablet PO 10/20/22 16:05 975 mg ONCE ONE Administration Sodium Chloride 1,000 mls @ 999 mls/hr 10/20/22 15:48 10/20/22 16:05 Ns IVCONT 10/20/22 16:48 999 mls/hr .Q1H1M ONE Administration Prochlorperazine Edisylate 10 mg 10/20/22 15:56 10/20/22 16:05 Prochlorperazine Edisylate 10 Mg/2 Ml Vial IVPUSH 10/20/22 15:57 10 mg ONCE ONE Administration Medical Decision Making Medical Decision Making [facility] Narrative: -1 tab with patient EKG: Normal sinus rhythm, heart rate 78, no ST segment de pression or elevation, nonspecific T-wave inversion in lead 3, QTC 426 -my interpretation of CT scan of the head: No intracranial bleed -initial patient's lactic acid elevated, 2.4 secondary to seizure, sepsis not suspected. Repeat lactic acid after IV fluids 0.7 -patient feeling much better, patient did not have any seizure activity in the emergency room, patient was giving Keppra 500 mg -patient has history of seizures. Discussed with the patient starting Keppra 500 mg b.i.d.. Patient will follow-up with her neurologist in [place]. -I discussed with the patient that she should not drive until medically cleared, this may be anywhere between 2-6 months if she does not have any seizures. Patient agreeable, patient's significant other at bedside, agrees that the patient will not be driving and he will be transporting her to work as needed Differential Diagnosis Differential Diagnoses: The differential diagnosis associated with the presentation includes (Seizure, syncope, vasovagal syncope) Admission/Observation Consideration of admission/observation: Escalation of care including admission/observation considered (Patient seemed postictal on arrival, admission was considered. Patient recovering from a seizure) Lab Data MDM Lab Attestation statement: I reviewed the patient's lab results. 10/20/22 16:17 10/20/22 16:17 Labs: Lab Results 10/20/22 10/20/22 10/20/22 Range/Units 16:17 16:17 16:17 WBC 6.4 (4.8-10.8) X10*3/uL RBC 3.89 L (4.20-5.50) X10*6/uL Hgb 11.7 L (12.0-16.0) g/dl Hct 34.6 L (37.0-47.0) % MCV 88.9 (80.0-98.0) fL MCH 30.1 (27.0-33.0) pg MCHC 33.8 (31.0-35.0) g/dl RDW 12.5 (11.0-16.0) % Plt Count 180 (160-400) X10*3/uL MPV 12.2 (9.4-12.3) fL Immature Gran % (Auto) 0.3 (0.0-0.4) % Neut % (Auto) 75.1 H (45-73) % Lymph % (Auto) 18.5 L (20-40) % [place] % (Auto) 4.9 (2-11) % Eos % (Auto) 0.9 (0-4) % Baso % (Auto) 0.3 (0-2) % Lymph # (Auto) 1.2 (1.2-4.9) X10*3/uL [place] # (Auto) 0.3 (0.1-1.2) X10*3/uL Eos # (Auto) 0.1 (0.0-0.4) X10*3/uL Baso # (Auto) 0.0 (0.0-0.2) X10*3/uL Abs Immat Gran (auto) 0.02 (0.00-0.03) X10*3/uL Absolute Neuts (auto) 4.8 (2.0-8.3) x10*3/uL Absolute Nucleated RBC 0.000 (0.0-0.012) X10*3/uL Nucleated RBC % (auto) 0.0 (0.0-0.2) /100WBC PT 13.6 H (11.1-13.3) SEC INR 1.1 (0.9-1.1) Sodium 138 (135-145) mmol/L Potassium 4.3 (3.3-5.1) mmol/L Chloride 108 (96-108) mmol/L Carbon Dioxide 22 (22-29) mmol/L Anion Gap 12 (12-20) BUN 10 (9-16) mg/dL Creatinine 0.79 (0.5-1.4) mg/dL Estim Creat Clear Calc 98.3 Estimated GFR > 60 Random Glucose 86 (60-115) mg/dL Lactic Acid (0.5-2.0) mmol/L Lactic Acid F/U @ 2Hr (0.5-2.0) mmol/L Calcium 9.6 D (8.4-10.2) mg/dL Magnesium 1.9 (1.6-2.6) mg/dL Total Bilirubin 0.3 (0.0-1.0) mg/dL Direct Bilirubin 0.1 (0.0-0.5) mg/dL AST 15 (5-31) U/L ALT 11 (0-31) U/L Alkaline Phosphatase 50 (39-117) U/L Troponin I High Sens (<3.5-17.0) ng/L Total Protein 7.7 (6.5-8.0) g/dL Albumin 4.2 (3.5-5.0) g/dL Urine Opiates Screen (Not Detect) Urine Fentanyl Screen (Not Detect) Ur Barbiturates Screen (Not Detect) Ur Phencyclidine Scrn (Not Detect) Ur Amphetamines Screen (Not Detect) U Benzodiazepines Scrn (Not Detect) Urine Cocaine Screen (Not Detect) U Marijuana (THC) Screen (Not Detect) Ethyl Alcohol < 10 mg/dL 10/20/22 10/20/22 10/20/22 Range/Units 16:17 16:17 18:43 WBC (4.8-10.8) X10*3/uL RBC (4.20-5.50) X10*6/uL Hgb (12.0-16.0) g/dl Hct (37.0-47.0) % MCV (80.0-98.0) fL MCH (27.0-33.0) pg MCHC (31.0-35.0) g/dl RDW (11.0-16.0) % Plt Count (160-400) X10*3/uL MPV (9.4-12.3) fL Immature Gran % (Auto) (0.0-0.4) % Neut % (Auto) (45-73) % Lymph % (Auto) (20-40) % [place] % (Auto) (2-11) % Eos % (Auto) (0-4) % Baso % (Auto) (0-2) % Lymph # (Auto) (1.2-4.9) X10*3/uL [place] # (Auto) (0.1-1.2) X10*3/uL Eos # (Auto) (0.0-0.4) X10*3/uL Baso # (Auto) (0.0-0.2) X10*3/uL Abs Immat Gran (auto) (0.00-0.03) X10*3/uL Absolute Neuts (auto) (2.0-8.3) x10*3/uL Absolute Nucleated RBC (0.0-0.012) X10*3/uL Nucleated RBC % (auto) (0.0-0.2) /100WBC PT (11.1-13.3) SEC INR (0.9-1.1) Sodium (135-145) mmol/L Potassium (3.3-5.1) mmol/L Chloride (96-108) mmol/L Carbon Dioxide (22-29) mmol/L Anion Gap (12-20) BUN (9-16) mg/dL Creatinine (0.5-1.4) mg/dL Estim Creat Clear Calc Estimated GFR Random Glucose (60-115) mg/dL Lactic Acid 2.4 H* (0.5-2.0) mmol/L Lactic Acid F/U @ 2Hr 0.7 (0.5-2.0) mmol/L Calcium (8.4-10.2) mg/dL Magnesium (1.6-2.6) mg/dL Total Bilirubin (0.0-1.0) mg/dL Direct Bilirubin (0.0-0.5) mg/dL AST (5-31) U/L ALT (0-31) U/L Alkaline Phosphatase (39-117) U/L Troponin I High Sens < 2.7 (<3.5-17.0) ng/L Total Protein (6.5-8.0) g/dL Albumin (3.5-5.0) g/dL Urine Opiates Screen (Not Detect) Urine Fentanyl Screen (Not Detect) Ur Barbiturates Screen (Not Detect) Ur Phencyclidine Scrn (Not Detect) Ur Amphetamines Screen (Not Detect) U Benzodiazepines Scrn (Not Detect) Urine Cocaine Screen (Not Detect) U Marijuana (THC) Screen (Not Detect) Ethyl Alcohol mg/dL 10/20/22 Range/Units 18:43 WBC (4.8-10.8) X10*3/uL RBC (4.20-5.50) X10*6/uL Hgb (12.0-16.0) g/dl Hct (37.0-47.0) % MCV (80.0-98.0) fL MCH (27.0-33.0) pg MCHC (31.0-35.0) g/dl RDW (11.0-16.0) % Plt Count (160-400) X10*3/uL MPV (9.4-12.3) fL Immature Gran % (Auto) (0.0-0.4) % Neut % (Auto) (45-73) % Lymph % (Auto) (20-40) % [place] % (Auto) (2-11) % Eos % (Auto) (0-4) % Baso % (Auto) (0-2) % Lymph # (Auto) (1.2-4.9) X10*3/uL [place] # (Auto) (0.1-1.2) X10*3/uL Eos # (Auto) (0.0-0.4) X10*3/uL Baso # (Auto) (0.0-0.2) X10*3/uL Abs Immat Gran (auto) (0.00-0.03) X10*3/uL Absolute Neuts (auto) (2.0-8.3) x10*3/uL Absolute Nucleated RBC (0.0-0.012) X10*3/uL Nucleated RBC % (auto) (0.0-0.2) /100WBC PT (11.1-13.3) SEC INR (0.9-1.1) Sodium (135-145) mmol/L Potassium (3.3-5.1) mmol/L Chloride (96-108) mmol/L Carbon Dioxide (22-29) mmol/L Anion Gap (12-20) BUN (9-16) mg/dL Creatinine (0.5-1.4) mg/dL Estim Creat Clear Calc Estimated GFR Random Glucose (60-115) mg/dL Lactic Acid (0.5-2.0) mmol/L Lactic Acid F/U @ 2Hr (0.5-2.0) mmol/L Calcium (8.4-10.2) mg/dL Magnesium (1.6-2.6) mg/dL Total Bilirubin (0.0-1.0) mg/dL Direct Bilirubin (0.0-0.5) mg/dL AST (5-31) U/L ALT (0-31) U/L Alkaline Phosphatase (39-117) U/L Troponin I High Sens (<3.5-17.0) ng/L Total Protein (6.5-8.0) g/dL Albumin (3.5-5.0) g/dL Urine Opiates Screen Not Detected (Not Detect) Urine Fentanyl Screen Not Detected (Not Detect) Ur Barbiturates Screen Not Detected (Not Detect) Ur Phencyclidine Scrn Not Detected (Not Detect) Ur Amphetamines Screen Not Detected (Not Detect) U Benzodiazepines Scrn Not Detected (Not Detect) Urine Cocaine Screen Not Detected (Not Detect) U Marijuana (THC) Screen Not Detected (Not Detect) Ethyl Alcohol mg/dL Independent Interpretation I performed an independent interpretation of an: EKG Radiology Impression Discussion of test interpretation with radiology: I have reviewed the radiologist's reading. Radiologist Impression: FINDINGS: The lateral, third and fourth ventricles are normally outlined. The cortical sulci and basal cisterns are normally outlined as well. There is no acute territorial defect, hemorrhage or midline shift. The extra-axial spaces are unremarkable. Calvarium: Intact. Maxillofacial sinuses and mastoids: Clear as visualized. CT/CT head/brain wo IV con IMPRESSION: No acute intracranial abnormality. Independent Historian Clinical information obtained from an independent historian. History obtained from or confirmed by: Spouse External Record Review External record reviewed: Outpatient record (Office visit with Endocrinology, noncontributory to today's visit) Chronic Conditions Patient?s care impacted by: Other (Seizure disorder) Critical Care Time Critical Care Time Critical Care Time: Yes Total Critical Care Time: 60 Attestation: I have personally provided critical care time. Time includes review of lab data, radiology results, discussion with consultants, and monitoring for potential decompensation. Intervention performed as documented. Discharge Plan Discharge Clinical Impression: Seizure disorder Patient Disposition: Home, Self-Care Instructions: Generalized Tonic Clonic Seizures (ED) Additional Instructions: Please do not drive until you are cleared by your neurologist. This may be anywhere between 2-6 months. Please follow-up with your primary care physician tomorrow. If you have any worsening or new symptoms, please return to the emergency room or call 911 Prescriptions: New levetiracetam [Keppra] 500 mg tablet 500 mg PO BID Qty: 60 0RF No Action metronidazole 500 mg tablet 500 mg PO BID 7 Days Qty: 14 0RF metronidazole 500 mg tablet 500 mg PO BID 7 Days Qty: 14 0RF ibuprofen 400 mg tablet 400 mg PO Q8H PRN (Reason: Pain) topiramate 25 mg tablet 25 mg PO DAILY fluconazole 150 mg tablet 150 mg PO Q3D 0 Days Qty: 2 1RF Rx Instructions: may repeat second dose 72 hrs after first dose if symptoms persist amitriptyline 100 mg tablet 100 mg PO BEDTIME Referrals: Grisel Lea MD [Physician] - 10/21/22 Stand Alone Forms: Work/School Release
[2022-10-20] MEDS: Prochlorperazine Edisylate 10 MG/2 ML VIAL IVPUSH (16:05)
[2022-10-20] MEDS: 0.9 % Sodium Chloride 1,000 ML 999 ML IVCONT (16:05)
[2022-10-20] MEDS: Acetaminophen 325 MG TABLET 975 MG PO (16:25)
[2022-10-20 16:26] LABS: MANUAL DIFF FLAG NO
[2022-10-20 16:27] LABS: Basophils Percent Auto 0.3 % (0-2); Eosinophils Absolute Auto 0.1 X10*3/uL (0.0-0.4); Eosinophils Percent Auto 0.9 % (0-4); Hematocrit 34.6 % (37.0-47.0); Hemoglobin 11.7 g/dl (12.0-16.0); Imm Gran Abs Auto 0.02 X10*3/uL (0.00-0.03); Imm Gran Pct Auto 0.3 % (0.0-0.4); Lymphocytes Absolute Auto 1.2 X10*3/uL (1.2-4.9); Lymphocytes Percent Auto 18.5 % (20-40); Mean Corpuscular HGB Conc 33.8 g/dl (31.0-35.0); Mean Corpuscular Hemoglobin 30.1 pg (27.0-33.0); Mean Corpuscular Volume 88.9 fL (80.0-98.0); Mean Platelet Volume 12.2 fL (9.4-12.3); Monocytes Absolute Auto 0.3 X10*3/uL (0.1-1.2); Monocytes Percent Auto 4.9 % (2-11); Neutrophils Absolute Auto 4.8 x10*3/uL (2.0-8.3); Neutrophils Percent Auto 75.1 % (45-73); Platelet Count 180 X10*3/uL (160-400); Red Blood Count 3.89 X10*6/uL (4.20-5.50); Red Cell Distribution Width 12.5 % (11.0-16.0); White Blood Count 6.4 X10*3/uL (4.8-10.8)
[2022-10-20 16:35] LABS: INTERNATIONAL NORM RATIO 1.1 (0.9-1.1); Prothrombin Time 13.6 SEC (11.1-13.3)
--- NOTE | 2022-10-20 16:53 | PC.NURSE ---
pt had IV placed by EMS upon arrival. however, IV was not patent so EMS IV d/c'd and new line placed in the right AC w/o complications.
[2022-10-20 16:59] LABS: Alanine Aminotransferase 11 U/L (0-31); Albumin Level 4.2 g/dL (3.5-5.0); Alkaline Phosphatase 50 U/L (39-117); Anion Gap 12 (12-20); Aspartate Amino Transferase 15 U/L (5-31); Bilirubin Direct 0.1 mg/dL (0.0-0.5); Bilirubin Total 0.3 mg/dL (0.0-1.0); Blood Urea Nitrogen 10 mg/dL (9-16); Calcium 9.6 mg/dL (8.4-10.2); Carbon Dioxide 22 mmol/L (22-29); Chloride 108 mmol/L (96-108); Creatinine Clr Calc Pharmacy 98.3; Estimated Glomerular Filt Rate > 60; Ethanol < 10 mg/dL; Glucose Random 86 mg/dL (60-115); Magnesium 1.9 mg/dL (1.6-2.6); Potassium 4.3 mmol/L (3.3-5.1); Sodium 138 mmol/L (135-145); Total Protein 7.7 g/dL (6.5-8.0); Troponin-I High Sensitivity < 2.7 ng/L (<3.5-17.0)
[2022-10-20 17:12] LABS: Lactic Acid 2.4 mmol/L (0.5-2.0)
[2022-10-20 18:09] VITALS: BP 111/65; PULSE 78; RESP 16; O2SAT 99
[2022-10-20 18:24] LABS: Reflex Lactate? Lactic Acid Added
[2022-10-20 18:58] LABS: ~Lactic Acid-LAB USE ONLY 0.7 mmol/L (0.5-2.0)
[2022-10-20 19:00] LABS: Amphetamine Screen Urine Not Detected (Not Detect); Barbiturates, Urine Not Detected (Not Detect); Benzodiazepines Screen Urine Not Detected (Not Detect); Cannabinoid Screen Urine Not Detected (Not Detect); Cocaine Screen Urine Not Detected (Not Detect); Fentanyl, urine Not Detected (Not Detect); Opiate Screen Urine Not Detected (Not Detect); Phencyclidine Screen Urine Not Detected (Not Detect)
[2022-10-20 19:06] LABS: Appearance Urine Cloudy; Color Urine Yellow; Glucose Urine UA Negative (Negative); Leukocyte Esterase Urine Negative (Negative); Nitrite Urine Negative (Negative); PH 5.5 (5.0-9.0); UMIC TRIGGER UACC YES; Urine Blood Negative (Negative); Urine Ketones 15 mg/dL (Negative); Urine Protein 30 (1+) mg/dL (Neg-Trace)
[2022-10-20 19:52] LABS: Bacteria Urine Trace (None Seen); Hyaline Casts Urine 0-2 /LPF (0-2); RBC Urine 0-2 /HPF (0-2); WBC Urine 0-5 /HPF (0-5)
== END 2022-10-20 19:51 | disposition home or self-care (01) ==
PROVIDERS: Emergency Provider Emergency Medicine; PCP Family Medicine
DX: G40.909 Epilepsy, unspecified, not intractable, without status epilepticus (principal); Z79.899 Other long term (current) drug therapy
CPT/HCPCS: 36415; 70450; 80048; 80076; 80307; 81001; 81003; 83605; 83735; 84484; 85025; 85610; 93005; 96361; 96374; 99284; 99285

== ENCOUNTER 2022-11-27 08:43 | Outpatient (REF) | payer MEDICAID, SELFPAY ==
[2022-11-27 11:11] LABS: MANUAL DIFF FLAG NO
[2022-11-27 11:33] LABS: Basophils Percent Auto 0.6 % (0-2); Eosinophils Absolute Auto 0.1 X10*3/uL (0.0-0.4); Eosinophils Percent Auto 1.7 % (0-4); Hematocrit 35.2 % (37.0-47.0); Hemoglobin 11.7 g/dl (12.0-16.0); Imm Gran Abs Auto 0.02 X10*3/uL (0.00-0.03); Imm Gran Pct Auto 0.3 % (0.0-0.4); Lymphocytes Absolute Auto 1.5 X10*3/uL (1.2-4.9); Lymphocytes Percent Auto 22.7 % (20-40); Mean Corpuscular HGB Conc 33.2 g/dl (31.0-35.0); Mean Corpuscular Hemoglobin 29.8 pg (27.0-33.0); Mean Corpuscular Volume 89.6 fL (80.0-98.0); Mean Platelet Volume 12.2 fL (9.4-12.3); Monocytes Absolute Auto 0.5 X10*3/uL (0.1-1.2); Monocytes Percent Auto 7.4 % (2-11); Neutrophils Absolute Auto 4.3 x10*3/uL (2.0-8.3); Neutrophils Percent Auto 67.3 % (45-73); Platelet Count 188 X10*3/uL (160-400); Red Blood Count 3.93 X10*6/uL (4.20-5.50); Red Cell Distribution Width 12.7 % (11.0-16.0); White Blood Count 6.4 X10*3/uL (4.8-10.8)
[2022-11-27 12:04] LABS: Alanine Aminotransferase 8 U/L (0-31); Alkaline Phosphatase 49 U/L (39-117); Anion Gap 15 (12-20); Aspartate Amino Transferase 12 U/L (5-31); Bilirubin Direct 0.1 mg/dL (0.0-0.5); Bilirubin Total 0.3 mg/dL (0.0-1.0); Blood Urea Nitrogen 8 mg/dL (9-16); Calcium 9.4 mg/dL (8.4-10.2); Carbon Dioxide 20 mmol/L (22-29); Chloride 109 mmol/L (96-108); Cholesterol 182 mg/dL (<200); Estimated Glomerular Filt Rate > 60; Glucose Random 88 mg/dL (60-115); HDL Cholesterol 51 mg/dL (>40); LDL Cholesterol Calculated 114 mg/dL (<100); Potassium 4.1 mmol/L (3.3-5.1); Sodium 140 mmol/L (135-145); Total Protein 7.5 g/dL (6.5-8.0); Triglycerides 89 mg/dL (<150)
[2022-11-27 12:08] LABS: TSH reflex Free T4 1.09 uIU/mL (0.32-4.0)
[2022-11-27 13:41] LABS: CT PCR NOT DETECTED (Not Detect.); NG PCR NOT DETECTED (Not Detect.)
[2022-11-28 03:40] LABS: HIV AB/AG Nonreactive (Nonreactive); HIV Num 1 0.07 S/CO (0.00-0.99); ~HepC Num1 0.11 S/CO (0.00-0.79); ~Hepatitis C Antibody Nonreactive (Nonreactive)
== END 2022-11-27 08:44 | disposition home or self-care (01) ==
LOC: HO.HHCL 08:43
PROVIDERS: Visit Provider Family Medicine
DX: R56.9 Unspecified convulsions (principal); Z11.3 Encounter for screening for infections with a predominantly sexual mode of transmission
CPT/HCPCS: 0353U; 80048; 80061; 80076; 80177; 84443; 85025; 86803; 87389

== ENCOUNTER 2023-04-07 16:27 | Outpatient (REF) | payer MEDICAID, SELFPAY ==
[2023-04-10 20:33] LABS: Levetiracetam Keppra 31.7 mcg/mL (6.0-46.0)
== END 2023-04-07 16:28 | disposition home or self-care (01) ==
LOC: HO.HHCL 16:27
PROVIDERS: Visit Provider Psychiatry & Neurology Neurology
DX: G40.209 Localization-related (focal) (partial) symptomatic epilepsy and epileptic syndromes with complex partial seizures, not intractable, without status epilepticus (principal)
CPT/HCPCS: 36415; 80177

== ENCOUNTER 2023-06-03 14:51 | Outpatient (REF) | payer MEDICAID, SELFPAY ==
--- NOTE | ~2023-06-03 | US_ITS ---
EXAMINATION: US THYROID CLINICAL INFORMATION: Nontoxic multinodular goiter. COMPARISON: Thyroid ultrasound 05/06/2022 and 05/18/2021. Ultrasound-guided thyroid biopsy 05/16/2020. TECHNIQUE: Linear transducer grayscale and color Doppler examination with attention to the region of the thyroid. FINDINGS: SIZE: Measurements of the thyroid lobes and nodules are given in sagittal, anteroposterior and transverse dimensions respectively. Right Thyroid Lobe: 5.7 x 1.5 x 1.6 cm, volume 7.2 mL. Previously 5.4 x 1.4 x 1.4 cm, volume 5.5 mL. Parenchyma: The gland echotexture is heterogeneous. Thyroid vascularity is increased. Left Thyroid Lobe: 5.1 x 2.1 x 2.1 cm, volume 11.8 mL. Previously 5.2 x 2.1 x 1.5 cm, volume 8.6 mL. Parenchyma: The gland echotexture is heterogeneous. Thyroid vascularity is increased. Isthmus: 0.6 cm in maximum AP dimension. Previously 0.6 cm. Estimated total number of nodules greater than or equal to 1 cm: 2. Relocation Commissioner nodules are described as follows: 1. Location: Right mid pole. Size: 1.0 x 0.8 x 0.9 cm, volume 0.4 mL. Previously: 1.3 x 0.6 x 1.2 cm, volume 0.5 mL. Nodule characteristics: Composition: Solid/almost completely solid (2). Echogenicity: Isoechoic (1). Shape: Not taller than wide (0). Margins: Smooth (0). Echogenic Foci: Punctate echogenic foci (3). ACR TI-RADS total points: 6 Previous: 6 ACR TI-RADS category: 4 Previous: 4 Significant change in size (>/= 20% in 2 dimensions and minimal increase of 2 mm or 50% or greater increase in volume): No 2. Location: Right isthmus. Size: 0.9 x 0.6 x 0.6 cm, volume 0.2 mL. Previously: 0.8 x 0.4 x 0.7 cm, volume 0.1 mL. Nodule characteristics: Composition: Solid (2). Echogenicity: Isoechoic (1). Shape: Not taller than wide (0). Margins: Smooth (0). Echogenic Foci: None (0). ACR TI-RADS total points: 3 Previous: 3 ACR TI-RADS category: 3 Previous: 3 Significant change in size (>/= 20% in 2 dimensions and minimal increase of 2 mm or 50% or greater increase in volume): No 3. Location: Left lower pole. Size: 2.3 x 2.0 x 1.8 cm, volume 4.3 mL. Previously: 1.9 x 1.9 x 1.7 cm, volume 3.1 mL. Nodule characteristics: Composition: Mixed cystic and solid (1). Echogenicity: Isoechoic (1). Shape: Taller than wide (3). Margins: Smooth (0). Echogenic Foci: None (0). ACR TI-RADS total points: 5 Previous: 6 ACR TI-RADS category: 4 Previous: 4 Significant change in size (>/= 20% in 2 dimensions and minimal increase of 2 mm or 50% or greater increase in volume): No NODES: No lymphadenopathy is seen in the tissue surrounding the thyroid gland. US/US thyroid IMPRESSION: Again demonstrated is a multinodular thyroid gland. Previously visualized thyroid nodules are all relatively stable in size. Nodule #3 is amenable to FNA if not already undertaken.
== END 2023-06-03 14:52 | disposition home or self-care (01) ==
LOC: HO.US 14:51
PROVIDERS: PCP Family Medicine; Visit Provider Internal Medicine Endocrinology, Diabetes & Metabolism
DX: E04.2 Nontoxic multinodular goiter (principal)
CPT/HCPCS: 76536

== ENCOUNTER 2023-08-11 09:25 | Outpatient (REF) | payer MEDICAID, SELFPAY ==
[2023-08-11 11:01] LABS: Free T4 (Free Thyroxine) 0.83 ng/dL (0.71-1.85); Thyroid Stimulating Hormone 1.03 uIU/mL (0.32-4.0)
== END 2023-08-11 09:26 | disposition home or self-care (01) ==
LOC: HO.LAB 09:25
PROVIDERS: PCP Family Medicine; Visit Provider Internal Medicine Endocrinology, Diabetes & Metabolism
DX: E04.2 Nontoxic multinodular goiter (principal)
CPT/HCPCS: 36415; 84439; 84443

== ENCOUNTER 2023-08-18 12:58 | Outpatient (AMB) | payer MEDICAID, SELFPAY ==
[2023-08-18 12:59] VITALS: BP 114/82; PULSE 82; BMI 33.6
--- NOTE | 2023-08-18 12:59 | A.OFFVIS_ITS ---
Vital Signs 08/18/23 12:59 Height 5 ft 3 in Weight 189 lb 13.088 oz BMI 33.6 BP 114/82 Blood Pressure Location Lt brachial Position Sitting Pulse 82 Pulse Source Pulse Oximeter Intake Visit Reasons: F/U NTMNG-confirmed Intake Note: Patient present today for NTMNG follow up visit. Patient previously seen by Dr. Nunez on 07/13/22. Director Corporate Compliance Required: No Accompanied by: Self / Same As Patient Allergies grape [GRAPE] Allergy (Severe, Verified 08/18/23 13:03) ITCHY, RASH, SWELLING cat dander [CAT] Allergy (Unknown, Verified 08/18/23 13:03) WAS TOLD BY HER DOCTOR SHE IS ALLERGIC TO CATS. dog dander [DOG] Allergy (Unknown, Verified 08/18/23 13:03) DOCTOR TOLD PT SHE HAS ALLERGY TO DOGS Medication List - Last Reconciled 08/18/23 by Fab Moreira MD amitriptyline 100 mg PO BEDTIME fluconazole 150 mg PO Q3D 2 doses ibuprofen 400 mg PO Q8H PRN levetiracetam (Keppra) 500 mg PO BID metronidazole 500 mg PO BID 7 days metronidazole 500 mg PO BID 7 days topiramate 25 mg PO DAILY HPI Comments Details: 38 YO F with no significant PMHx who is seen in F/U for a NMTNG.. The patient last saw Dr. Nunez on 07/13/2022 Was initially diagnosed with multinodular thyroid in early Apr 2020 with thyroid US revealing a 2.2 cm nodule within the thyroid. She initially presented to her PCP with a lump in her neck which she had noticed approximnately 2 months prior. An US of the head and neck was ordered, which revealed a 2.2 cm L thyroid nodule. Unfortunately a full thyroid US was not completed. She underwent FNA biopsy 05/16/2020 of a LMP 2.2 cm thyroid nodule with benign cytology. She had a repeat thyroid US 06/18/2021 with no significant change in her nodules. What was read as a RMP and isthmus nodule were not true nodules, just areas of heterogeneity. Currently does complain of dysphagia but denies hoarseness of voice. Does mention weight gain, but denies any other symptoms of hyper or hypothyroidism. Denies any history of head or neck irradiation. Denies any family history of thyroid cancer. Thyroid US: 05/06/2022 Right Thyroid Lobe: 5.4 x 1.4 x 1.4 cm, volume 5.5 mL. Previously 5.6 x 1.6 x 1.6 cm, volume 8.1 mL. Parenchyma: The gland echotexture is homogeneous. Thyroid vascularity is normal. Left Thyroid Lobe: 5.2 x 2.1 x 1.5 cm, volume 8.6 mL. Previously 5.3 x 2.0 x 1.4 cm, volume 9.2 mL. Parenchyma: The gland echotexture is homogeneous. Thyroid vascularity is normal. Isthmus: 0.6 cm in maximum AP dimension. Previously 0.6 cm. Estimated total number of nodules greater than or equal to 1 cm: 2. 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 Location: Right mid. ?? ? Size: 1.3 x 0.6 x 1.2 cm, volume 0.5 mL. ?? ? Previously: 1.4 x 0.7 x 1.0 cm, volume 0.5 mL. ?? ? Nodule characteristics: ?? ? Composition: Solid (2). ?? ? Echogenicity: Hyperechoic (1). ?? ? Shape: Not taller than wide (0). ?? ? Margins: Ill-defined (0). ?? ? Echogenic Foci: Punctate echogenic foci (3).? ACR TI-RADS total points: 6 Previous: 6 ?? ? ACR TI-RADS category: 4 Previous: 4 ? Significant change in size (>/= 20% in 2 dimensions and minimal increase of 2 mm or 50% or greater increase in volume): None ?? ? Change in features: None ?? ? Change in ACR TI-RADS risk category: No change 2.? Location: Right isthmus. ?? ? Size: 0.8 x 0.4 x 0.7 cm, volume 0.1 mL. ?? ? Previously: 0.9 x 0.5 x 0.9 cm, volume 0.2 mL. ?? ? Nodule characteristics: ?? ? Composition: Solid (2). ?? ? Echogenicity: Hyperechoic (1). ?? ? Shape: Not taller than wide (0). ?? ? Margins: Smooth (0). ?? ? Echogenic Foci: None (0).? ACR TI-RADS total points: 3 Previous: 3 ?? ? ACR TI-RADS category: 3 Previous: 3 ? Significant change in size (>/= 20% in 2 dimensions and minimal increase of 2 mm or 50% or greater increase in volume): None ?? ? Change in features: None ?? ? Change in ACR TI-RADS risk category: None 3.? Location: Left inferior. ?? ? Size: 1.9 x 1.9 x 1.7 cm, volume 3.1 mL. ?? ? Previously: 1.9 x 1.8 x 1.8 cm, volume 3.3 mL. ?? ? Nodule characteristics: ?? ? Composition: Solid/almost completely solid (2). ?? ? Echogenicity: Hyperechoic (1). ?? ? Shape: Taller than wide (3). ?? ? Margins: Smooth (0). ?? ? Echogenic Foci: None (0). ? ACR TI-RADS total points: 6 Previous: 3 ?? ? ACR TI-RADS category: 4 Previous: 3 ? Significant change in size (>/= 20% in 2 dimensions and minimal increase of 2 mm or 50% or greater increase in volume): None ?? ? Change in features: None ?? ? Change in ACR TI-RADS risk category: Increased NODES: No lymphadenopathy is seen in the tissue surrounding the thyroid gland. Labs: Laboratory Tests 07/09/22 15:55 TSH 1.25 Free T4 0.87 C/O pressure on L neck. No dysphagia or problems breathing PFSH Medical History Multinodular thyroid Seizure disorder Surgical History History of bilateral tubal ligation Hx of cholecystectomy Hx of section Family History Mother Unknown family medical history Father Hypertension Heart disease Maternal Grandmother Colon cancer Social History Alcohol intake: never Patient Tobacco Use Status: Never used Tobacco Female Reproductive History Menstrual Age of Menarche: 11 Physical Exam Vital Signs: Last Vital Signs Pulse 82 08/18/23 12:59 BP 114/82 08/18/23 12:59 BMI result Body Mass Index 33.6 Const Other: Thyroid gland is larger in size weighs about 30 g. This is a left midpole nodule palpated which is about 3 cm Assessment & Plan Assessment & Plan (1) Multinodular thyroid: Code(s): E04.2 - Nontoxic multinodular goiter Category: Medical Plan: 38-year-old female with a history of multinodular goiter She underwent FNA biopsy 05/16/2020 of a LMP 2.2 cm thyroid nodule with benign cytology.. She appears clinically biochemically euthyroid. Recent thyroid ultrasound showed no change in the size of nodules. However, patient is having obstructive symptoms from the left nodule The plan is to send the patient to Dr. Alicea for possible left lobectomy Orders: Referrals General Surgery Referral E04.2 - Nontoxic multinodular goiter Coding Level of Care Code Est Pt Level 3 (06886) Diagnoses Multinodular thyroid E04.2
== END 2023-08-18 13:23 | disposition home or self-care (01) ==
PROVIDERS: PCP Family Medicine; Visit Provider Internal Medicine Endocrinology, Diabetes & Metabolism
DX: E04.2 Nontoxic multinodular goiter (principal)
CPT/HCPCS: 99213

== ENCOUNTER → 2023-08-18 12:58 | Outpatient (BNVA) | payer MEDICAID, SELFPAY | PROVIDERS: PCP Family Medicine; Visit Provider Internal Medicine Endocrinology, Diabetes & Metabolism | DX: E04.2 Nontoxic multinodular goiter (principal) | CPT/HCPCS: 99212 ==

== ENCOUNTER 2024-03-02 11:10 | Outpatient (REF) | payer MEDICAID, SELFPAY ==
[2024-03-02 13:02] LABS: MANUAL DIFF FLAG NO
[2024-03-02 13:13] LABS: Basophils Percent Auto 0.9 % (0-2); Eosinophils Absolute Auto 0.1 X10*3/uL (0.0-0.4); Eosinophils Percent Auto 1.4 % (0-4); Imm Gran Abs Auto 0.01 X10*3/uL (0.00-0.03); Imm Gran Pct Auto 0.2 % (0.0-0.4); Lymphocytes Absolute Auto 1.4 X10*3/uL (1.2-4.9); Lymphocytes Percent Auto 31.3 % (20-40); Mean Corpuscular HGB Conc 33.3 g/dl (31.0-35.0); Mean Corpuscular Hemoglobin 29.5 pg (27.0-33.0); Mean Corpuscular Volume 88.5 fL (80.0-98.0); Mean Platelet Volume 12.6 fL (9.4-12.3); Monocytes Absolute Auto 0.3 X10*3/uL (0.1-1.2); Neutrophils Absolute Auto 2.6 x10*3/uL (2.0-8.3); Neutrophils Percent Auto 59.2 % (45-73); Platelet Count 208 X10*3/uL (160-400); Red Blood Count 4.07 X10*6/uL (4.20-5.50); Red Cell Distribution Width 12.3 % (11.0-16.0); White Blood Count 4.4 X10*3/uL (4.8-10.8)
[2024-03-02 13:31] LABS: Cholesterol 173 mg/dL (<200); HDL Cholesterol 42 mg/dL (>40); Iron 55 mcg/dL (30-160); LDL Cholesterol Calculated 111 mg/dL (<100); Percent Iron Saturation 23 % (15-50); Total Iron Binding Capacity 237 mcg/dL (228-428); Triglycerides 102 mg/dL (<150); Unsaturated Iron Binding 182 ug/dL
[2024-03-02 13:47] LABS: Ferritin 8 ng/mL (10-122); TSH reflex Free T4 0.98 uIU/mL (0.32-4.0)
[2024-03-02 13:58] LABS: Vitamin B12 290 pg/mL (200-900)
== END 2024-03-02 11:11 | disposition home or self-care (01) ==
LOC: HO.HHCL 11:10
PROVIDERS: Visit Provider Family Medicine
DX: D64.9 Anemia, unspecified (principal); E66.811 Obesity, class 1; E66.09 Other obesity due to excess calories; Z68.32 Body mass index [BMI] 32.0-32.9, adult
CPT/HCPCS: 36415; 80061; 82607; 82728; 83540; 84443; 85025

== ENCOUNTER 2024-08-11 11:01 | Outpatient (AMB) | payer MEDICAID, SELFPAY ==
--- NOTE | 2024-08-11 11:12 | A.OFFVIS_ITS ---
Vital Signs 08/11/24 11:13 Height 5 ft 3 in Weight 134 lb 14.766 oz BMI 23.9 BP 100/60 Blood Pressure Location Rt brachial Position Sitting Pulse 87 Pulse Source Pulse Oximeter Pulse Oximetry (%) 98 Oxygen Delivery Method Room Air Intake Visit Reasons: MNG Intake Note: Patient present today for MNG office visit. Allergies grape [GRAPE] Allergy (Severe, Verified 08/18/23 13:03) ITCHY, RASH, SWELLING cat dander [CAT] Allergy (Unknown, Verified 08/18/23 13:03) WAS TOLD BY HER DOCTOR SHE IS ALLERGIC TO CATS. dog dander [DOG] Allergy (Unknown, Verified 08/18/23 13:03) DOCTOR TOLD PT SHE HAS ALLERGY TO DOGS Medication List - Last Reconciled 08/11/24 by Fariba Fonseca MD ibuprofen 400 mg PO Q8H PRN lamotrigine (Lamictal) 100 mg PO BID levetiracetam (Keppra) 4,000 mg PO BID lorazepam 1 mg PO DAILY PRN topiramate 25 mg PO DAILY HPI Comments Details: 39-year-old female coming in today for follow up of nontoxic multinodular goiter. HPI Diagnosed with thyroid nodules in 2020. Thyroid ultrasound in April 2020 showed 2.2 cm left thyroid lobe nodule. 05/16/2020: FNA biopsy of the left thyroid lobe nodule was benign. 06/18/2021: Follow up ultrasound shows stable size of the nodule and some low risk right thyroid lobe nodules. 05/06/2022: Follow up ultrasound showed stable areas of heterogeneity in the right lobe which were previously commented on as nodules, and stable 1.9 cm left thyroid lobe nodule. Given she continued to have compressive symptoms she was referred for surgical evaluation. 11/12/2023: Evaluated by Dr. Pancho Alicea at [facility] however given stability of the size of the nodules with no major compressive symptoms, just occasional discomfort, it was decided to do surveillance imaging, in 2 years. 06/03/2023: Most recent thyroid ultrasound, I reviewed the images myself which showed stable size of the left lower pole nodule, measuring 2.3 cm mixed cystic solid, isoechoic, taller than wide, TR 4 category. Showed another right midpole stable 1 cm TR 4 category nodule, enteritis isthmus cyst cm stable nodule as well. Normal TSH from March 2024. No personal history of head or neck radiation. No family history of thyroid cancers or endocrine tumors. Physical exam General: sitting comfortably in no acute distress HEENT: normocephalic/atraumatic, Neck: supple, palpable 2 cm left-sided nodule Cardiac: normal heart sounds Pulm: normal breath sounds B/L, no added breath sounds Abd: not distended, no tenderness Extremities: no edema, no signs of myxedema Laboratory Tests 08/11/23 03/02/24 09:31 11:12 TSH 1.03 0.98 Free T4 0.83 US THYROID 06/03/23 CLINICAL INFORMATION: Nontoxic multinodular goiter. COMPARISON: Thyroid ultrasound 05/06/2022 and 05/18/2021. Ultrasound-guided thyroid biopsy 05/16/2020. TECHNIQUE: Linear transducer grayscale and color Doppler examination with attention to the region of the thyroid. FINDINGS: SIZE: Measurements of the thyroid lobes and nodules are given in sagittal, anteroposterior and transverse dimensions respectively. Right Thyroid Lobe: 5.7 x 1.5 x 1.6 cm, volume 7.2 mL. Previously 5.4 x 1.4 x 1.4 cm, volume 5.5 mL. Parenchyma: The gland echotexture is heterogeneous. Thyroid vascularity is increased. Left Thyroid Lobe: 5.1 x 2.1 x 2.1 cm, volume 11.8 mL. Previously 5.2 x 2.1 x 1.5 cm, volume 8.6 mL. Parenchyma: The gland echotexture is heterogeneous. Thyroid vascularity is increased. Isthmus: 0.6 cm in maximum AP dimension. Previously 0.6 cm. Estimated total number of nodules greater than or equal to 1 cm: 2. 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 Location: Right mid pole. Size: 1.0 x 0.8 x 0.9 cm, volume 0.4 mL. Previously: 1.3 x 0.6 x 1.2 cm, volume 0.5 mL. Nodule characteristics: Composition: Solid/almost completely solid (2). Echogenicity: Isoechoic (1). Shape: Not taller than wide (0). Margins: Smooth (0). Echogenic Foci: Punctate echogenic foci (3). ACR TI-RADS total points: 6 Previous: 6 ACR TI-RADS category: 4 Previous: 4 Significant change in size (>/= 20% in 2 dimensions and minimal increase of 2 mm or 50% or greater increase in volume): No 2. Location: Right isthmus. Size: 0.9 x 0.6 x 0.6 cm, volume 0.2 mL. Previously: 0.8 x 0.4 x 0.7 cm, volume 0.1 mL. Nodule characteristics: Composition: Solid (2). Echogenicity: Isoechoic (1). Shape: Not taller than wide (0). Margins: Smooth (0). Echogenic Foci: None (0). ACR TI-RADS total points: 3 Previous: 3 ACR TI-RADS category: 3 Previous: 3 Significant change in size (>/= 20% in 2 dimensions and minimal increase of 2 mm or 50% or greater increase in volume): No 3. Location: Left lower pole. Size: 2.3 x 2.0 x 1.8 cm, volume 4.3 mL. Previously: 1.9 x 1.9 x 1.7 cm, volume 3.1 mL. Nodule characteristics: Composition: Mixed cystic and solid (1). Echogenicity: Isoechoic (1). Shape: Taller than wide (3). Margins: Smooth (0). Echogenic Foci: None (0). ACR TI-RADS total points: 5 Previous: 6 ACR TI-RADS category: 4 Previous: 4 Significant change in size (>/= 20% in 2 dimensions and minimal increase of 2 mm or 50% or greater increase in volume): No NODES: No lymphadenopathy is seen in the tissue surrounding the thyroid gland. US/US thyroid IMPRESSION: Again demonstrated is a multinodular thyroid gland. Previously visualized thyroid nodules are all relatively stable in size. Nodule #3 is amenable to FNA if not already undertaken. FOR[facility], [facility] Medical History Multinodular thyroid Seizure disorder Surgical History History of bilateral tubal ligation Hx of cholecystectomy Hx of section Family History Mother Unknown family medical history Father Hypertension Heart disease Maternal Grandmother Colon cancer Social History Alcohol intake: never Patient Tobacco Use Status: Never used Tobacco Female Reproductive History Menstrual Age of Menarche: 11 Assessment & Plan Assessment & Plan (1) Multinodular thyroid: Code(s): E04.2 - Nontoxic multinodular goiter Category: Medical Plan: 39-year-old female who is coming in today for follow up of nontoxic multinodular goiter. Diagnosed in 2020 on ultrasound which showed a left midpole 2.2 cm nodule, FNA biopsy 05/16/2020 of this nodule was benign. Subsequently it has been followed by surveillance ultrasounds, and the nodule remained stable in size on most recent ultrasound done in May 2023. She had some degree of compressive symptoms but not too bothersome, got surgical evaluation in October 2023 where it was recommended to continue with surveillance imaging given stability of the size of the nodule that was benign with not too greater degree of compressive symptoms. Normal thyroid function with TSH from March 2024. At this point her compressive symptoms remained stable, she has a occasional discomfort but nothing too bothersome. We will plan to repeat i ing in May 2025 with follow up in June 2025 to discuss results. If at that point nodule again remained stable, we will space out follow up further. Plan: -do ultrasound of the thyroid in May 2025 prior to follow up in June 2025 -do TSH with reflex free T4 prior to follow up in June 2025 -follow up in June 2025 Plan See above Orders: Orders US thyroid 06/13/25 Fariba Fonseca MD E04.2 - Nontoxic multinodular goiter TSH reflex Free T4 06/11/25 Fariba Fonseca MD E04.2 - Nontoxic multinodular goiter Medications: Changed From levetiracetam (Keppra) 500 mg PO BID 60 tabs 0RF To levetiracetam (Keppra) 4,000 mg PO BID Ludy Harrison MD Patient Instructions: Do ultrasound of the thyroid in May 2025 and follow up in beginning of June 2025 to discuss results Coding Level of Care Code Est Pt Level 3 (03813) Diagnoses Multinodular thyroid E04.2
[2024-08-11 11:13] VITALS: BP 100/60; PULSE 87; O2SAT 98; BMI 23.9
--- OUTSIDE RECORDS SUMMARY | 2024-08-11 12:06 | XMS_ITS | Encounter Summary ---
Author Organization [employer] Address [address] [facility] [address] [place] [address] Care Team Providers Care Rn Concurrent Review Name Role Phone Vidya Albright MD Primary Care Provider [phone] Fab Moreira MD Unavailable [phone] Fariba Fonseca MD Unavailable Reason for Visit * Reason Comments Med Refill Encounter Details Date Type Department Care Team (Late st Contact Info) Description 07/13/2022 Refill [facility] [address] [place] [address] Vidya Albright MD [address] [place], [place] [id number] Bacterial vaginosis Social History Tobacco Use Types Packs/Day Years Used Date Smoking Tobacco: Former Cigarettes Smokeless Tobacco: Current Alcohol Use Standard Drinks/Week Comments Never 0 (1 standard drink = 0.6 oz pur e alcohol) Depression Answer Date Recorded Patient Health Questionnaire-2 Score 0 02/19/2022 Comments Unknown Sex and Gender Information Value Date Recorded Sex Assigned at Female 12/29/2021 10:17 AM EDT Legal Sex Female 10:17 AM EDT Gender Identity Female 12/29/2021 10:17 AM EDT Sexual Orientation Choose not to disclose 2021 10:17 AM EDT documented as of this encounter Plan of Treatment Not on file documented as of this encounter Visit Diagnoses Diagnosis Bacterial vaginosis Unspecified vaginitis and vulvovaginitis documented in this encounter Care Teams Rn Concurrent Review Relationship Specialty Start Date End Date Vidya Albright MD [address] [place] [id number] PCP - General Family Medicine 03/01/18 Fab Moreira MD [address] [place] [id number] Endocrinology 02/22/24 Fariba Fonseca MD [address] [place] [address] Endocrinology 08/11/24 [facility] Neruology Neurology 02/22/24 documented as of this encounter
== END 2024-08-11 11:28 | disposition home or self-care (01) ==
LOC: HO.ENCR 11:02
PROVIDERS: PCP Family Medicine; Visit Provider Student in an Organized Health Care Education/Training Program
DX: E04.2 Nontoxic multinodular goiter (principal)
CPT/HCPCS: 99213

== ENCOUNTER → 2024-08-11 11:01 | Outpatient (BNVA) | payer MEDICAID, SELFPAY | PROVIDERS: PCP Family Medicine; Visit Provider Student in an Organized Health Care Education/Training Program | DX: E04.2 Nontoxic multinodular goiter (principal) | CPT/HCPCS: 99212 ==

== ENCOUNTER 2024-08-16 16:39 | Outpatient (REF) | payer MEDICAID, SELFPAY ==
--- OUTSIDE RECORDS SUMMARY | 2024-08-16 18:13 | XMS_ITS | Encounter Summary ---
Author Organization [employer] Address [address] [facility] [address] [place] [address] Care Team Providers Care Sound Technician Supervisor Name Role Phone Vidya Albright MD Primary Care Provider [phone] Fab Moreira MD Unavailable [phone] Fariba Fonseca MD Unavailable Reason for Visit * Reason Comments Med Refill Encounter Details Date Type Department Care Team (Late st Contact Info) Description 07/13/2022 Refill [facility] [address] [place] [address] Vidya Albright MD [address] [place] [address] Bacterial vaginosis Social History Tobacco Use Types [...] vulvovaginitis documented in this encounter Care Teams Sound Technician Supervisor Relationship Specialty Start Date End Date Vidya Albright MD [address] [place] [id number] PCP - General Family Medicine 03/01/18 Fab Moreira MD [address] [place] [id number] Endocrinology 02/22/24 Fariba Fonseca MD [address] [place] [address] Endocrinology 08/11/24 [facility] Neruology Neurology 02/22/24 documented as of this encounter
[2024-08-16 18:41] LABS: Bacterial Vaginosis PCR POSITIVE (Negative); Candida Group PCR DETECTED (Not Detect); Candida glab krusei PCR NOT DETECTED (Not Detect); Trichomonas vaginalis PCR NOT DETECTED (Not Detect)
[2024-08-16 21:23] LABS: CT PCR NOT DETECTED (Not Detect.); NG PCR NOT DETECTED (Not Detect.)
== END 2024-08-16 16:40 | disposition home or self-care (01) ==
LOC: HO.HHCLNP 16:39
PROVIDERS: Visit Provider Internal Medicine
DX: N76.0 Acute vaginitis (principal)
CPT/HCPCS: 81515; 87491; 87591